=== PATIENT | female | born 1960 | race American Indian/Alaskan Native ===

== ENCOUNTER 2017-03-22 19:49 | Emergency (ER) | payer OTHER ==
[2017-03-22 20:08] VITALS: RESP 18; BMI 20.6
--- NOTE | 2017-03-22 21:36 | C.PDOC ---
History Of Present Illness A 56 year old female presents to the ER c/o left shoulder and bilateral lower extremity pain that occurred today. Patient notes she had a mechanical fall after being tripped by a side walk crack and falling on her legs and left shoulder. Patient denies LOC, fever, chills, nausea, vomiting, or any other complaints. - HPI Time Seen by Provider: 03/22/17 21:29 Chief Complaint (Nursing): Trauma History Per: Patient History/Exam Limitations: no limitations Onset/Duration Of Symptoms: Hrs Location Of Injury: Left: Leg, Shoulder Severity: Mild Additional History Per: Patient Past Medical History Reviewed: Historical Data, Nursing Documentation, Vital Signs Vital Signs: Last Vital Signs Temp 98.4 F 03/22/17 20:07 Pulse 84 03/22/17 20:07 Resp 18 03/22/17 20:07 BP 124/79 03/22/17 20:07 Pulse Ox 99 03/22/17 21:43 Family History: States: Unknown Family Hx - Social History Hx Alcohol Use: Yes Hx Substance Use: No Review Of Systems Except As Marked, All Systems Reviewed And Found Negative. Constitutional: Negative for: Fever, Chills Gastrointestinal: Negative for: Nausea, Vomiting Musculoskeletal: Positive for: Shoulder Pain (Left), Leg Pain (Both extremities) Neurological: Negative for: Other (LOC) Physical Exam - Physical Exam Appears: Non-toxic, No Acute Distress Skin: Warm, Dry Head: Atraumatic, Normacephalic Eye(s): bilateral: Normal Inspection Cardiovascular: Rhythm Regular, No Murmur Respiratory: Normal Breath Sounds, No Rales, No Rhonchi, No Wheezing Extremity: Normal ROM, No Pedal Edema, No Deformity, No Swelling, Other ( Superficial abrasion on the both knee.) Neurological/Psych: Oriented x3, Normal Speech, Normal Cognition ED Course And Treatment O2 Sat by Pulse Oximetry: 99 (RA) Pulse Ox Interpretation: Normal - Other Rad b/l knees X-Ray: Interpreted by Me (neg) L shoulder X-Ray: Interpreted by Me (neg) Progress Note: ice packs, motrin PO Medical Decision Making Medical Decision Making: Plans: -RAD left shoulder -RAD both knee -Reassess and disposition neg Disposition Doctor Will See Patient In The: Office Counseled Patient/Family Regarding: Studies Performed, Diagnosis - Disposition Disposition: HOME/ ROUTINE Disposition Time: 22:23 Condition: GOOD - Clinical Impression Clinical Impression: Contusion, Sprain of shoulder, left - Scribe Statement The provider has reviewed the documentation as recorded by the Trinityibmahamed freeman All medical record entries made by the Trinityibe were at my direction and personally dictated by me. I have reviewed the chart and agree that the record accurately reflects my personal performance of the history, physical exam, medical decision making, and the department course for this patient. I have also personally directed, reviewed, and agree with the discharge instructions and disposition.
[2017-03-22 22:38] VITALS: BP 135/82; PULSE 71; TEMP 98.7; O2SAT 98
--- NOTE | 2017-03-23 11:03 | RAD ---
PROCEDURE: Radiographs of the Left Shoulder HISTORY: fall pain left shoulder COMPARISON: No prior. FINDINGS: BONES: Normal. No fracture. JOINTS: Normal. Glenohumeral and acromioclavicular joints preserved. No osteoarthritis. SOFT TISSUES: Normal. OTHER FINDINGS: None. IMPRESSION: No acute findings related to/accounting for the clinical presentation. Concordant results with the preliminary interpretation rendered by the emergency department physician procedure.
--- NOTE | 2017-03-23 11:05 | RAD ---
PROCEDURE: Bilateral Knee Radiographs. HISTORY: fall pain both COMPARISON: None. FINDINGS: BONES: Right Knee: No acute fracture. Left Knee: No acute fracture. JOINTS: Right Knee: Mild degenerative changes primarily affecting lateral compartment and to a lesser extent medial compartment. Left knee: Symmetrical degenerative change. SOFT TISSUES: Right Knee: Normal. Left Knee: Normal. JOINT EFFUSION: Right Knee: None. Left Knee: None. OTHER FINDINGS: None. IMPRESSION: No acute findings related to/accounting for the clinical presentation. Concordant results with the preliminary interpretation rendered by the emergency department physician procedure.
== END 2017-03-22 22:35 | disposition home or self-care (01) ==
LOC: C.ER 19:49
DX: S43.402A Unspecified sprain of left shoulder joint, initial encounter (principal); S80.212A Abrasion, left knee, initial encounter; S80.211A Abrasion, right knee, initial encounter; W01.0XXA Fall on same level from slipping, tripping and stumbling without subsequent striking against object, initial encounter

== ENCOUNTER 2018-03-20 18:17 | Emergency (ER) | payer OTHER ==
[2018-03-20 18:17] VITALS: BMI 20.6
[2018-03-20 18:30] VITALS: RESP 16; TEMP 99
[2018-03-20] MEDS ORDERED: Lidocaine 5% Patch TD ONE (20:03)
[2018-03-20] MEDS: Lidocaine 5% Patch TD STA (20:24)
[2018-03-20 20:31] VITALS: BP 126/74; PULSE 70; O2SAT 100
--- NOTE | 2018-03-20 20:36 | C.PDOC ---
History Of Present Illness 57 y/o female presents to the ED complaining of mid back pain, onset yesterday after exercising at the gym. Patient states she normally works out at the gym 5x per week. Last time she tried a new move and lifted something heavy over her back. Now reports worsening pain over her back, and feels as if she pulled the muscle. Pain worsens with movement and changing position. No urinary symptoms, numbness, or weakness. Time Seen by Provider: 03/20/18 18:42 Chief Complaint (Nursing): Back Pain History Per: Patient History/Exam Limitations: no limitations Onset/Duration Of Symptoms: Days (x2) Current Symptoms Are (Timing): Still Present Past Medical History Reviewed: Historical Data, Nursing Documentation, Vital Signs Vital Signs: Last Vital Signs Temp 99 F 03/20/18 18:27 Pulse 70 03/20/18 20:30 Resp 16 03/20/18 20:30 BP 126/74 03/20/18 20:30 Pulse Ox 100 03/20/18 21:01 Surgical History: No Surg Hx Family History: States: Unknown Family Hx - Social History Hx Tobacco Use: No Hx Alcohol Use: Yes Hx Substance Use: No Review Of Systems Except As Marked, All Systems Reviewed And Found Negative. Genitourinary: Negative for: Dysuria, Incontinence Musculoskeletal: Positive for: Back Pain Neurological: Negative for: Weakness, Numbness Physical Exam - Physical Exam Appears: Non-toxic, No Acute Distress Skin: Normal Color, Warm, Dry Head: Atraumatic, Normacephalic Eye(s): bilateral: Normal Inspection, PERRL, EOMI Oral Mucosa: Moist Neck: Normal ROM Chest: Symmetrical Respiratory: No Other (respiratory distress) Back: No Vertebral Tenderness, No Decreased ROM, Paraspinal Tenderness ( reproducible pain to bilateral parathoracic regions) Extremity: Normal ROM (with FROM of extremities), No Tenderness, No Deformity Neurological/Psych: Oriented x3, Normal Speech Gait: Steady ED Course And Treatment ECG: Interpreted By Me, Viewed By Me ECG Rhythm: Sinus Rhythm ECG Interpretation: No Acute Changes Rate From EC O2 Sat by Pulse Oximetry: 100 (RA) Pulse Ox Interpretation: Normal - Radiology CXR: Interpreted by Me (and ED attending Dr. Mcginnis) CXR Interpretation: Yes: No Acute Disease Progress Note: Ordered CXR. EKG done, and is normal. Toradol IM and Lidoderm patch ordered. Patient refused Toradol, but took Lidoderm. On re-evaluation patient feels better and is stable to be d/c home. Patient requested work note. Disposition - Disposition Disposition: HOME/ ROUTINE Disposition Time: 20:59 Condition: STABLE Additional Instructions: Follow up with your PMD within 1-2 days. Return to ED if feel worse. Prescriptions: Cyclobenzaprine [Cyclobenzaprine HCl] 10 mg PO TID #15 tab Lidocaine 5% [Lidoderm] 1 patch TP DAILY #30 patch Ibuprofen [Motrin Tab] 400 mg PO Q8 #30 tab Instructions: Upper Back Pain (DC) Forms: [facility] (Greek), Work Excuse - Clinical Impression Clinical Impression: Thoracic back sprain - PA / OBSTETRICS SPECIALIST / Resident Statement MD/DO has reviewed & agrees with the documentation as recorded. - Scribe Statement The provider has reviewed the documentation as recorded by the Scribe (Anne Baptiste) All medical record entries made by the Scribe were at my direction and personally dictated by me. I have reviewed the chart and agree that the record accurately reflects my personal performance of the history, physical exam, medical decision making, and the department course for this patient. I have also personally directed, reviewed, and agree with the discharge instructions and disposition.
--- NOTE | 2018-03-21 08:28 | RAD ---
HISTORY: upper back pain COMPARISON: No prior. TECHNIQUE: Chest PA and lateral FINDINGS: LUNGS: No active pulmonary disease. PLEURA: No significant pleural effusion identified. No pneumothorax apparent. CARDIOVASCULAR: Normal. OSSEOUS STRUCTURES: No significant abnormalities. VISUALIZED UPPER ABDOMEN: Normal. OTHER FINDINGS: None. IMPRESSION: No active disease.
--- NOTE | 2018-03-21 11:48 | CARD ---
APPROVED REPORT EKG Measurement Heart [id number] NM [id number] [id number] <Conclusion> Normal sinus rhythm Normal ECG
== END 2018-03-20 21:06 | disposition home or self-care (01) ==
LOC: C.ER 18:17
DX: S23.3XXA Sprain of ligaments of thoracic spine, initial encounter (principal); X50.0XXA Overexertion from strenuous movement or load, initial encounter; Y93.B9 Activity, other involving muscle strengthening exercises; Y92.39 Other specified sports and athletic area as the place of occurrence of the external cause

== ENCOUNTER 2018-05-04 13:14 | Emergency (ER) | payer OTHER ==
[2018-05-04 13:20] VITALS: BMI 18.9
[2018-05-04 13:21] VITALS: RESP 18; O2SAT 100
[2018-05-04] MEDS ORDERED: Sodium Chloride 0.9% 1,000 ML IV ONE (13:44)
--- NOTE | 2018-05-04 14:01 | C.PDOC ---
History Of Present Illness 58 year old female presents to the ED for evaluation of new onset of lightheadedness which began today. She reports having two episodes of lightheadedness, of which the most recent was prior to arrival. She states first onset was while she was doing a normal walking activity. She reports feeling lightheaded and felt like she was going to "pass out." Second onset was while patient was driving. Patient states she was able to pull her car over, have some food and water and found improvement in her symptoms. She presents to the ED because she does not feel "back to normal." Patient denies fever, chills , vertigo-like symptoms, chest pain, heart racing sensation, headache. Time Seen by Provider: 05/04/18 13:31 Chief Complaint (Nursing): Dizziness/Lightheaded History Per: Patient History/Exam Limitations: no limitations Current Symptoms Are (Timing): Still Present Activity At Onset Of Symptoms: Standing Seizure Or Post-ictal Symptoms: None Fall Associated With With Symptoms: No Additional History Per: Patient Past Medical History Reviewed: Historical Data, Nursing Documentation, Vital Signs Vital Signs: Last Vital Signs Temp 98.8 F 05/04/18 15:12 Pulse 82 05/04/18 15:12 Resp 18 05/04/18 15:12 BP 120/82 05/04/18 15:12 Pulse Ox 100 05/04/18 22:51 - Medical History PMH: No Chronic Diseases Family History: States: Unknown Family Hx - Social History Hx Tobacco Use: No Hx Alcohol Use: Yes Hx Substance Use: No Review Of Systems Constitutional: Negative for: Fever, Chills Neurological: Positive for: Other (lightheadedness ). Negative for: Headache Physical Exam - Physical Exam Appears: Non-toxic, No Acute Distress Skin: Normal Color, Warm, Dry Head: Atraumatic, Normacephalic Eye(s): bilateral: Normal Inspection Ear(s): Bilateral: Normal Oral Mucosa: Moist Neck: Supple Chest: Symmetrical, No Deformity, No Tenderness Cardiovascular: Rhythm Regular, No Murmur Respiratory: Normal Breath Sounds, No Rales, No Rhonchi, No Wheezing Extremity: Normal ROM, Capillary Refill (less than 2 seconds ) Neurological/Psych: Oriented x3, Normal Speech, Normal Cognition Gait: Steady ED Course And Treatment ECG: Interpreted By Me, Viewed By Me ECG Rhythm: Sinus Rhythm Rate From EC O2 Sat by Pulse Oximetry: 100 (on RA) Pulse Ox Interpretation: Normal - Radiology CXR: Interpreted by Me, Viewed By Me CXR Interpretation: Yes: Other (large bowel gas pattern noted ) Progress Note: Urinalysis, CT Head, CXR, EKG ordered and reviewed. Medical Decision Making Medical Decision Making: Patient was advised and offered radiological and blood evaluation for causes of near-syncope. Patient expresses verbal understanding of the plan, but is refusing IV therapy. She is requesting an EKG, CXR, CT Head and UA only. Patient refuses IV therapy. She prefers to have PO intake only. Disposition Counseled Patient/Family Regarding: Studies Performed, Diagnosis, Need For Followup - Disposition Referrals: YOUR,PMD [Other] Disposition: HOME/ ROUTINE Disposition Time: 14:52 Condition: IMPROVED Additional Instructions: YOU HAVE BEEN OFFERED BLOOD TESTING FOR EVALUATION OF YOUR SYMPTOMS. YOU HAVE STATED VERBAL UNDERSTANDING AND HAVE DEFERRED TESTING. CONTINUE HYDRATION ADVISED. FOLLOW UP WITH YOUR PMD. RETURN IF WORSENING SYMPTOMS. Instructions: Near Fainting (DC) Forms: [facility] (Marshallese), Work Excuse - Clinical Impression Clinical Impression: Near syncope - Scribe Statement The provider has reviewed the documentation as recorded by the Scribe (Earline Dodd) Provider Attestation: All medical record entries made by the Scribe were at my direction and personally dictated by me. I have reviewed the chart and agree that the record accurately reflects my personal performance of the history, physical exam, medical decision making, and the department course for this patient. I have also personally directed, reviewed, and agree with the discharge instructions and disposition.
[2018-05-04 14:09] LABS: SQUAMOUS EPITHIAL 2 /hpf (0-5); URINE BACTERIA MOD (<OCC); URINE BILIRUBIN NEGATIVE (NEGATIVE); URINE BLOOD NEGATIVE (NEGATIVE); URINE CLARITY Hazy (Clear); URINE COLOR Yellow (YELLOW); URINE GLUCOSE (UA) NORMAL (Normal); URINE LEUKOCYTE ESTERASE TRACE Leu/uL (Negative); URINE PROTEIN NEGATIVE (NEGATIVE); URINE UROBILINOGEN NORMAL mg/dL (0.2-1.0)
--- NOTE | 2018-05-04 14:36 | CT ---
PROCEDURE: CT HEAD WITHOUT CONTRAST. HISTORY: dizzy COMPARISON: None available. TECHNIQUE: Axial computed tomography images were obtained through the head/brain without intravenous contrast. Radiation dose: Total exam DLP = 1042.03 mGy-cm. This CT exam was performed using one or more of the following dose reduction techniques: Automated exposure control, adjustment of the mA and/or kV according to patient size, and/or use of iterative reconstruction technique. FINDINGS: HEMORRHAGE: No intracranial hemorrhage. BRAIN: No mass effect or edema. No atrophy or chronic microvascular ischemic changes. VENTRICLES: Unremarkable. No hydrocephalus. CALVARIUM: Unremarkable. PARANASAL SINUSES: Unremarkable as visualized. No significant inflammatory changes. MASTOID AIR CELLS: Unremarkable as visualized. No inflammatory changes. OTHER FINDINGS: None. IMPRESSION: Normal CT of the Head.
--- NOTE | 2018-05-04 14:38 | RAD ---
HISTORY: chest pain COMPARISON: 03/20/2018 TECHNIQUE: Chest PA and lateral FINDINGS: LUNGS: No active pulmonary disease. PLEURA: No significant pleural effusion identified. No pneumothorax apparent. CARDIOVASCULAR: Normal. OSSEOUS STRUCTURES: No significant abnormalities. VISUALIZED UPPER ABDOMEN: Normal. OTHER FINDINGS: None. IMPRESSION: No active disease.
[2018-05-04 15:13] VITALS: BP 120/82; PULSE 82; TEMP 98.8
--- NOTE | 2018-05-07 12:13 | CARD ---
APPROVED REPORT EKG Measurement Heart [id number] <Conclusion> Normal sinus rhythm Normal ECG
== END 2018-05-04 15:13 | disposition home or self-care (01) ==
LOC: C.ER 13:14
DX: R55 Syncope and collapse (principal)